=== PATIENT | female | born 1960 | race Caucasian/White ===

== ENCOUNTER → 2016-07-01 | Outpatient (CLI) | payer BC ==
[~2016-07-01] MED LIST: ADVIN25/60 INH; ALBU0.5N2 NEB; ALBU1AER9 INH; ASPI81TA28 PO; FLUT0.15 NAE; HYDR5SYP PO; LISI-461 PO; LSN5 PO; NYSS/ PO; PRED10TA PO; PRLSR20 PO; RANI300C PO
--- NOTE | 2016-07-02 13:15 | MAMMOGRAPHY REPORT ---
BILATERAL DIGITAL SCREENING MAMMOGRAM TOMOSYNTHESIS WITH CAD: 07/01/2016 CLINICAL HISTORY: Routine screening examination. TECHNIQUE: Breast tomosynthesis in addition to standard 2D mammography was performed. Current study was also evaluated with a Computer Aided Detection (CAD) system. COMPARISON: Comparison is made to exams dated: 06/28/2015 mammogram, 05/17/2014 mammogram, 05/11/2013 m ammogram, and 03/05/2011 mammogram - [facility]. BREAST COMPOSITION: There are scattered areas of fibroglandular density in both breasts. FINDINGS: The parenchymal pattern is unchanged. No developing mass, architectural distortion or clu ster of suspicious microcalcifications is seen in either breast. IMPRESSION: ACR BI-RADS CATEGORY 2: BENIGN There is no mammographic evidence of malignancy. A 1 year screening mammogram is recommended. The p atient will receive written notification of the results. Approximately 10% of breast cancers are not detected with mammography. A negative mammographic repor t should not delay biopsy if a clinically suggestive mass is present. Loli Vera M.D. ay/:07/01/2016 17:03:48 Card Puncher: Rosy PAN(R)(M), [facility] letter sent: Normal 1/2 BI-RADS Code: ACR BI-RADS Category 2: Benign
== END | disposition home or self-care (01) ==
LOC: C.MAMM 16:09
PROVIDERS: ATTEND Family Medicine
DX: Z12.31 Encounter for screening mammogram for malignant neoplasm of breast (principal)

== ENCOUNTER 2018-12-04 17:45 | Inpatient (IN) ==
[2018-12-04] MEDS ORDERED: ACETAMINOPHEN 325 MG TAB PO STA (18:01)
[2018-12-04] MEDS ORDERED: SODIUM CHLORIDE 0.9% 1000ML 2,000 ML IV ONE (18:01)
[2018-12-04] MEDS ORDERED: CEFEPIME 2,000 MG in SYRINGE 7.5 ML IV STA (18:08)
[2018-12-04] MEDS ORDERED: NYSTATIN SUSP 500,000 U/5 ML UDC PO STA (18:15)
--- NOTE | 2018-12-04 18:34 | XRay Report ---
XR chest 1V portable CLINICAL HISTORY: 58 years-old Female presenting with Sepsis. TECHNIQUE: Portable upright AP view of the chest was obtained. COMPARISON: 06/13/2015. FINDINGS: Cardiomediastinal silhouette normal. No focal opacity. No large effusion or pneumothorax. Degenerativ e changes of the thoracic spine. Upper abdomen normal. IMPRESSION: 1. No acute cardiopulmonary disease. Electronically signed by: Bart Ritchie M.D. 12/04/2018 6:32 PM
[2018-12-04 18:37] LABS: Partial Thromboplastin Ratio 1.1; Partial Thromboplastin Time 29.7 Seconds (21.0-31.0); Prothrombin Time 10.5 Seconds (9.0-12.0)
[2018-12-04 18:41] LABS: Albumin Level 3.9 gm/dl (3.4-5.0); BUN Creatinine Ratio 8.6 (10-20); Calcium 9.4 mg/dl (8.5-10.1); Creatinine Clr Calc Pharmacy 51.1 ml/min; Est GFR (African American) 51.5; Est GFR (Non-African American) 44.5; Potassium 4.4 mmol/L (3.5-5.1)
[2018-12-04 18:43] LABS: Albumin Globulin Ratio 1.1 (0.9-2); Bilirubin,Total 1.4 mg/dl (0.2-1); Globulin 3.7 gm/dl (2.5-4.0); Total Protein 7.6 gm/dl (6.4-8.2)
[2018-12-04 19:18] LABS: Appearance Urine Clear (Clear); Bilirubin Urine Negative (Negative); Blood Urine Negative (Negative); Color Urine Yellow; Glucose Urine UA Negative (Negative); Ketones Urine 1+ (Negative); Leukocyte Esterase Urine Negative (Negative); Nitrite Urine Negative (Negative); Protein Urine Negative (Negative); Specific Gravity Urine 1.015 (1.000-1.030); Urobilinogen Urine Negative (Negative)
[2018-12-04 19:29] LABS: Hematocrit (blood only) 46.4 % (37-47); Hemoglobin 16.6 g/dL (12.0-16.0); Mean Corpuscular Hgb Conc 35.8 g/dL (32-36); Mean Corpuscular Volume 92.6 fL (80-100); Mean Platelet Volume 11.1 fL (7.4-10.4); Platelet Count 164 K/uL (130-400); RDW Coefficient of Variation 12.3 % (11.5-14.5); RDW Standard Deviation 41.3 fL (36.4-46.3); Red Blood Count 5.01 M/uL (4.2-5.4); White Blood Count 2.79 K/uL (4.8-10.8)
[2018-12-04 19:32] LABS: Dohle Bodies 1+
[2018-12-04 19:36] LABS: ALC (manual) 1.69 K/uL (1.2-3.4); Blast # (manual) 0.05 K/uL (0-0); Blast Cells % (manual) 1.8 %; Eosinophils % (manual) 3.6 %; Lymphocytes # (manual) 1.69 K/uL (1.2-3.4); Lymphocytes % (manual) 60.4 %; Metamyelocytes # (manual) 0.03 K/uL (0-0); Metamyelocytes % (manual) 0.9 %; Monocytes # (manual) 0.65 K/uL (0.11-0.59); Monocytes % (manual) 23.4 %; Myelocytes # (manual) 0.05 K/uL (0-0); Myelocytes % (manual) 1.8 %; Neutrophils % (manual) 6.3 %; Promyelocytes # (manual) 0.05 K/uL (0-0); Promyelocytes % (manual) 1.8 %
--- NOTE | 2018-12-04 22:57 | History and Physical Report ---
DATE OF ADMISSION: 12/04/2018 CHIEF COMPLAINT: Fever. HISTORY OF PRESENT ILLNESS: This is a 58-year-old female with past medical history significant for asthma, hypertension, obesity, chronic kidney disease stage III, recent diagnosis of triple negative breast cancer status post surgery in October and status post first chemo last Wednesday and Neulasta on Wednesday.Presents with fever. The patient says since yesterday she was not feeling well, feeling generalized weak, poor appetite, and also she developed thrush in the tongue, which is not helping with her appetite and today she started feeling hot and thought she has a fever and came to the hospital and she was found to be slightly tachycardic and temperature spike and also having neutropenia, so we were called for febrile neutropenia. The patient received a dose of cefepime in the ER. Currently resting comfortably and hemodynamically stable. Denies any headache. No blurred visions, no earache, no runny nose, no sore throat. Has thrush in the mouth. No difficulty swallowing. Appetite is poor. No chest pain, no shortness of breath, no cough. No nausea, no vomiting. Some abdominal discomfort after eating. She has some on and off diarrhea since her gallbladder was taken out. No blood in the stools, no black stools. Normal bladder movements. No hematuria, no rash, no edema in the legs. Otherwise she is doing okay. She lives with her . ALLERGIES: POLLEN. PAST MEDICAL HISTORY: As mentioned above. PAST SURGICAL HISTORY:Excision of breast lesion bilaterally, EGD, right fibroadenoma, ligation of the oviducts, partial mastectomy on the left, cholecystectomy, vaginal hysterectomy. MEDICATIONS: The patient is on tramadol 50 mg p.o. q. 6 hours p.r.n., Protonix 40 mg p.o. daily, lisinopril 20 mg p.o. daily, albuterol 2 puffs 4 times a day, multivitamins daily. FAMILY HISTORY: Significant for mother has hypertension, father of [place] at age of 39, uncle had heart disorder, of [place]. SOCIAL HISTORY: , lives with her . No smoking history. Alcohol, social drinking. No drug use. REVIEW OF SYMPTOMS: As per HPI. Rest of the review of systems negative. PHYSICAL EXAMINATION: GENERAL: The patient is obese, not in acute distress. VITAL SIGNS: Temperature T-max 38.1, pulse 105, respiratory rate 23, blood pressure 137/84, oxygen 95% on room air. HEENT: No pallor, no icterus. Pupils equal, round, reactive to light. Oral mucosa, thrush in her tongue. NECK: No JVD, no neck masses, no carotid bruits. CARDIOVASCULAR: S1, S2 heard, regular rate and rhythm, no murmur, no gallop. RESPIRATORY SYSTEM: Normal AP diameter. No accessory muscle use. No wheezing, no crackles. ABDOMEN: Soft, bowel sounds present. Mild diffuse discomfort. No guarding, no rigidity. No distention. CENTRAL NERVOUS SYSTEM: Cranial nerves II-XII grossly intact, nonfocal. EXTREMITIES: No edema, no erythema. LABORATORY DATA: WBC 2.7, hemoglobin 16.6, hematocrit 46.4, platelets 164, total absolute neutrophils 0.18. PT 12.5, INR 1, APTT 29.7. Sodium 134, potassium 4.4, chloride 98, bicarbonate 27, BUN 11, creatinine 1.31, glucose 110. Lactate 1.7, calcium 9.4, total bilirubin 1.4, AST 21, ALT 44, alkaline phosphatase 133. Urinalysis negative. IMAGING DATA: Chest x-ray, no acute cardiopulmonary disease. EKG: Sinus tachycardia at a rate of 104. No significant change from previous EKG. ASSESSMENT AND PLAN: This is a 58-year-old female who presents with febrile neutropenia. 1. Febrile neutropenia. Has triple negative breast cancer status post surgery and first chemo last Wednesday and the patient received Neulasta on Wednesday. Comes with fever and found to have febrile neutropenia. Chest x-ray, no acute abnormalities seen. UA is negative. Empirically starting on cefepime and vancomycin. Follow the cultures. IV fluids. Neutropenic precautions. Monitor in the med/surg tele. If no improvement, will consider consulting ID and hematology/oncology. 2. Breast cancer, triple negative, status post left lumpectomy and first cycle of chemo last Wednesday. Follow up with hematology/oncology. 3. Hypertension. Continue lisinopril withholding parameters. 4. Gastroesophageal reflux disease, continue Protonix. 5. Asthma, currently stable, albuterol p.r.n. 6. Deep venous thrombosis prophylaxis, sequential compression devices for now. 7. Disposition: Admit to med/surg tele. Level 1 full code. Expect to discharge home and follow with her family doctor and hem/onc. RK
--- NOTE | 2018-12-04 23:34 | Emergency Department Note ---
Entered by Lorrie Emerson acting as a scribe for History of Present Illness General Chief complaint: Fever Stated complaint: FEVER Source: patient Limitations: no limitations History of Present Illness Onset (ago): hour(s) (this afternoon) Location: head Pain Consistency: + other (persistent) Maximum Pain Intensity: 3 Quality: + other (fever) Associated symptoms: + denies other symptoms (cough, rhinorrhea, sore throat, abdominal pain, nausea/vomiting, and urinary symptoms) and + other (feeling tired and achy) The patient is a 58 year old female with a PMHx of GERD, cancer, HTN, and cholecystectomy who presents to the Emergency Room with complaints of a persistent fever that began this afternoon. She reports that her fever was 101.3. The patient notes that she got her first chemotherapy treatment 6 days ago, noting that this was her first dose. The patient complains of feeling tired and achy. She denies any cough, rhinorrhea, sore throat, abdominal pain, nausea/vomiting, and urinary symptoms. The patient notes that her last BM was a few hours ago, and it was looser than normal. She notes that she has thrush in her mouth, but she is not on antibiotics. The patient denies any sick exposure. Home Medications Home Medications Medication Instructions Recorded Confirmed Type lisinopril 20 mg PO DAILY 12/04/18 12/04/18 History pantoprazole 40 mg PO DAILY 12/04/18 12/04/18 History tramadol 50 mg PO Q6H PRN 12/04/18 12/04/18 History Allergies Allergy/AdvReac Type Severity Reaction Status Date / Time No Known Allergies Allergy Unverified 12/04/18 18:34 Past Med/Surg History Medical History Asthma (Chronic) GERD (gastroesophageal reflux disease) (Chronic) Hypertension (Chronic) Allergic rhinitis (Chronic) Surgical History Status post cholecystectomy (Chronic) Status post hysterectomy (Chronic) Status post tubal ligation (Chronic) Status post excision of fibroadenoma of breast (Chronic) Social History Feels Safe at Home: Yes Smoking Status: Never smoker Review of Systems See HPI for pertinent positives & negatives. and A total of 10 systems reviewed and were otherwise negative Physical Exam Vital Signs Vital Signs - 24 hr 12/04/18 17:49 12/04/18 18:37 12/04/18 18:40 Temperature 38.1 C H Temperature Source Oral Sepsis Recent Fever Within 48 Hours No Sepsis Action Taken by Nursing No Action Required Pulse Rate 119 H 106 H 107 H Pulse Rate from SpO2 Sensor 105 H Pulse Rhythm Regular Regular Pulse Strength Normal Respiratory Rate 20 22 20 Respiratory Effort / Characteristics Non-Labored Spontaneous Respiratory Depth Normal Respiratory Pattern Regular Blood Pressure 122/83 134/72 Blood Pressure Mean 96 92 Blood Pressure Position Sitting Pulse Oximetry 97 92 97 Oxygen Delivery Method Room Air Room Air Room Air 12/04/18 18:45 12/04/18 19:15 12/04/18 19:30 Temperature Temperature Source Sepsis Recent Fever Within 48 Hours Sepsis Action Taken by Nursing Pulse Rate 109 H 104 H 106 H Pulse Rate from SpO2 Sensor 109 H 104 H 107 H Pulse Rhythm Pulse Strength Respiratory Rate 19 34 H 34 H Respiratory Effort / Characteristics Respiratory Depth Respiratory Pattern Blood Pressure 135/94 129/76 132/78 Blood Pressure Mean 107 93 96 Blood Pressure Position Pulse Oximetry 94 91 95 Oxygen Delivery Method Room Air Room Air Room Air 12/04/18 20:25 12/04/18 20:30 12/04/18 20:46 Temperature 38.1 C H Temperature Source Oral Sepsis Recent Fever Within 48 Hours Sepsis Action Taken by Nursing Pulse Rate 110 H 105 H Pulse Rate from SpO2 Sensor 111 H 106 H Pulse Rhythm Pulse Strength Respiratory Rate 30 H 23 Respiratory Effort / Characteristics Respiratory Depth Respiratory Pattern Blood Pressure 101/70 137/84 Blood Pressure Mean 80 101 Blood Pressure Position Pulse Oximetry 96 95 Oxygen Delivery Method Room Air Room Air 12/04/18 22:00 12/04/18 22:05 12/04/18 22:06 Temperature 37.9 C H Temperature Source Oral Sepsis Recent Fever Within 48 Hours Sepsis Action Taken by Nursing Pulse Rate 104 H 104 H Pulse Rate from SpO2 Sensor 106 H 104 H Pulse Rhythm Pulse Strength Respiratory Rate 25 H 25 H Respiratory Effort / Characteristics Respiratory Depth Respiratory Pattern Blood Pressure 120/84 Blood Pressure Mean 96 Blood Pressure Position Pulse Oximetry 97 97 Oxygen Delivery Method Room Air 12/04/18 22:15 12/04/18 22:30 Temperature Temperature Source Sepsis Recent Fever Within 48 Hours Sepsis Action Taken by Nursing Pulse Rate 107 H 95 H Pulse Rate from SpO2 Sensor 107 H 95 H Pulse Rhythm Pulse Strength Respiratory Rate 25 H 30 H Respiratory Effort / Characteristics Respiratory Depth Respiratory Pattern Blood Pressure 109/72 111/71 Blood Pressure Mean 84 84 Blood Pressure Position Pulse Oximetry 95 94 Oxygen Delivery Method Room Air Room Air GENERAL: sitting up in bed, alert, well appearing, well nourished, no distress, non-toxic EYE EXAM: normal conjunctiva, PERRL and EOM's grossly intact OROPHARYNX: no exudate, no erythema, lips, buccal mucosa, mucous membranes are moist. White plaques on the tongue. NECK: supple, no nuchal rigidity, no adenopathy, non-tender LUNGS: Clear to auscultation. Normal chest wall mechanics HEART: no murmurs, S1 normal and S2 normal. Tachycardic. ABDOMEN: abdomen soft, non-tender, normo-active bowel sounds, no masses, no rebound or guarding. BACK: Back is symmetrical on inspection and there is no deformity, no midline tenderness, no CVA tenderness. SKIN: no rashes and no bruising UPPER EXTREMITIES: upper extremities are grossly normal. LOWER EXTREMITIES: No pitting edema. NEURO EXAM: Normal sensorium, cranial nerves II-XII grossly intact, normal speech, no gross weakness of arms, no gross weakness of legs. Course ED COURSE: Vital signs were reviewed and showed the patient was febrile and tachycardic. The patients medical record was reviewed The above diagnostic studies were performed and reviewed. ED treatments and interventions as stated above. 5: The patient was evaluated in room A02. A complete history and physical examination was performed. 1858: I reevaluated the patient. 1954: I spoke with Dr. Wen, [facility] hospitalist, about the patients case. 2009: Upon reevaluation, the patient is stable. I discussed my findings with the patient and she understands and agrees with the treatment plan. Based on the patients age, coexisting illnesses, exam and lab findings the decision to treat as an inpatient was made. The patient remained stable while under my care. The patient will be evaluated for further management. Consultations Consultation #1: I spoke with Dr. Wen, [facility] hospitalist, about the patients case. Time: 19:55 Administered Medications Discontinued Medications Acetaminophen (Tylenol) 650 mg PO NOW STA Stop: 12/04/18 18:02 Last Admin: 12/04/18 18:30 Dose: 650 mg Documented by: [id number] Sodium Chloride (Nss 1000ml) 2,000 mls @ 999 mls/hr IV .Q2H1M ONE Stop: 12/04/18 20:01 Last Infusion: 12/04/18 20:32 Dose: 0 mls/hr Documented by: [id number] Admin: 12/04/18 18:30 Dose: 999 mls/hr Documented by: [id number] Cefepime HCl 2,000 mg/ Syringe 20 mls @ 5.5 mls/min IV NOW STA; Protocol Stop: 12/04/18 18:11 Last Admin: 12/04/18 18:30 Dose: 5.5 mls/min Documented by: [id number] Nystatin (Mycostatin) 5 ml PO NOW STA Stop: 12/04/18 18:16 Last Admin: 12/04/18 18:57 Dose: 5 ml Documented by: [id number] Medical Decision Making Differential Diagnosis Etiologies such as sepsis, UTI, pneumonia, bacteremia, metabolic process, electrolyte abnormalities, cardiac sources, intracerebral event, intra-abdominal process, toxicological process, neurologic process, as well as others were entertained. Medical Records Attestation: I reviewed the patient's medical records. Home Medications Current Medication List: was personally reviewed by me Laboratory Data Attestation: I reviewed the patient's lab results. Result diagrams: 12/04/18 18:13 12/04/18 18:13 Lab Results 12/04/18 12/04/18 12/04/18 Range/Units 18:13 18:13 18:13 WBC 2.79 L (4.8-10.8) K/uL RBC 5.01 (4.2-5.4) M/uL Hgb 16.6 H (12.0-16.0) g/dL Hct 46.4 (37-47) % MCV 92.6 (80-100) fL MCH 33.1 (25-34) pg MCHC 35.8 (32-36) g/dL RDW Std Deviation 41.3 (36.4-46.3) fL RDW Coeff of Odilon 12.3 (11.5-14.5) % Plt Count 164 (130-400) K/uL MPV 11.1 H (7.4-10.4) fL Neutrophils % (Manual) 6.3 % Lymphocytes % (Manual) 60.4 % Monocytes % (Manual) 23.4 % Eosinophils % (Manual) 3.6 % Metamyelocytes % (Man) 0.9 % Myelocytes % (Man) 1.8 % Promyelocytes % (Man) 1.8 % Blast Cells % (Manual) 1.8 % Neutrophils # (Manual) 0.18 L (1.4-6.5) K/uL Total Absolute Neuts 0.18 L* (1.4-6.5) K/uL Lymphocytes # (Manual) 1.69 (1.2-3.4) K/uL Total Abs Lymphocytes 1.69 (1.2-3.4) K/uL Monocytes # (Manual) 0.65 H (0.11-0.59) K/uL Eosinophils # (Manual) 0.10 (0-0.5) K/uL Metamyelocytes # (Man) 0.03 H (0-0) K/uL Myelocytes # (Manual) 0.05 H (0-0) K/uL Promyelocytes # (Man) 0.05 H (0-0) K/uL Blast Cells # (Man) 0.05 H (0-0) K/uL Dohle Bodies 1+ PT 10.5 (9.0-12.0) Seconds INR 1.0 (0.9-1.1) APTT 29.7 (21.0-31.0) Seconds PTT Ratio 1.1 Sodium 134 L (136-145) mmol/L Potassium 4.4 (3.5-5.1) mmol/L Chloride 98 (98-107) mmol/L Carbon Dioxide 27 (21-32) mmol/L Anion Gap 9.0 (3-11) BUN 11 (7-18) mg/dl Creatinine 1.31 H (0.6-1.2) mg/dl Est Cr Clr Drug Dosing 51.1 ml/min Est GFR ( Amer) 51.5 Est GFR (Non-Af Amer) 44.5 BUN/Creatinine Ratio 8.6 L (10-20) Glucose 110 H (70-99) mg/dl Lactate (0.4-2.0) mmol/L Calcium 9.4 (8.5-10.1) mg/dl Total Bilirubin 1.4 H (0.2-1) mg/dl AST 21 (15-37) U/L ALT 44 (12-78) U/L Alkaline Phosphatase 133 H (45-117) U/L Total Protein 7.6 (6.4-8.2) gm/dl Albumin 3.9 (3.4-5.0) gm/dl Globulin 3.7 (2.5-4.0) gm/dl Albumin/Globulin Ratio 1.1 (0.9-2) Urine Color Urine Appearance (Clear) Urine pH (4.5-7.5) Ur Specific Saxe (1.000-1.030) Urine Protein (Negative) Urine Glucose (UA) (Negative) Urine Ketones (Negative) Urine Blood (Negative) Urine Nitrite (Negative) Urine Bilirubin (Negative) Urine Urobilinogen (Negative) Ur Leukocyte Esterase (Negative) 12/04/18 12/04/18 Range/Units 18:13 18:54 WBC (4.8-10.8) K/uL RBC (4.2-5.4) M/uL Hgb (12.0-16.0) g/dL Hct (37-47) % MCV (80-100) fL MCH (25-34) pg MCHC (32-36) g/dL RDW Std Deviation (36.4-46.3) fL RDW Coeff of Odilon (11.5-14.5) % Plt Count (130-400) K/uL MPV (7.4-10.4) fL Neutrophils % (Manual) % Lymphocytes % (Manual) % Monocytes % (Manual) % Eosinophils % (Manual) % Metamyelocytes % (Man) % Myelocytes % (Man) % Promyelocytes % (Man) % Blast Cells % (Manual) % Neutrophils # (Manual) (1.4-6.5) K/uL Total Absolute Neuts (1.4-6.5) K/uL Lymphocytes # (Manual) (1.2-3.4) K/uL Total Abs Lymphocytes (1.2-3.4) K/uL Monocytes # (Manual) (0.11-0.59) K/uL Eosinophils # (Manual) (0-0.5) K/uL Metamyelocytes # (Man) (0-0) K/uL Myelocytes # (Manual) (0-0) K/uL Promyelocytes # (Man) (0-0) K/uL Blast Cells # (Man) (0-0) K/uL Dohle Bodies PT (9.0-12.0) Seconds INR (0.9-1.1) APTT (21.0-31.0) Seconds PTT Ratio Sodium (136-145) mmol/L Potassium (3.5-5.1) mmol/L Chloride (98-107) mmol/L Carbon Dioxide (21-32) mmol/L Anion Gap (3-11) BUN (7-18) mg/dl Creatinine (0.6-1.2) mg/dl Est Cr Clr Drug Dosing ml/min Est GFR ( Amer) Est GFR (Non-Af Amer) BUN/Creatinine Ratio (10-20) Glucose (70-99) mg/dl Lactate 1.7 (0.4-2.0) mmol/L Calcium (8.5-10.1) mg/dl Total Bilirubin (0.2-1) mg/dl AST (15-37) U/L ALT (12-78) U/L Alkaline Phosphatase (45-117) U/L Total Protein (6.4-8.2) gm/dl Albumin (3.4-5.0) gm/dl Globulin (2.5-4.0) gm/dl Albumin/Globulin Ratio (0.9-2) Urine Color Yellow Urine Appearance Clear (Clear) Urine pH 8.0 H (4.5-7.5) Ur Specific Saxe 1.015 (1.000-1.030) Urine Protein Negative (Negative) Urine Glucose (UA) Negative (Negative) Urine Ketones 1+ H (Negative) Urine Blood Negative (Negative) Urine Nitrite Negative (Negative) Urine Bilirubin Negative (Negative) Urine Urobilinogen Negative (Negative) Ur Leukocyte Esterase Negative (Negative) Imaging Data Radiologist's Impression: Radiology results as stated below per my review and the radiologist's interpretation: XR chest 1V portable CLINICAL HISTORY: 58 years-old Female presenting with Sepsis. TECHNIQUE: Portable upright AP view of the chest was obtained. COMPARISON: 06/13/2015. FINDINGS: Cardiomediastinal silhouette normal. No focal opacity. No large effusion or pneumothorax. Degenerative changes of the thoracic spine. Upper abdomen normal. IMPRESSION: 1. No acute cardiopulmonary disease. Electronically signed by: Bart Ritchie M.D. 12/04/2018 6:32 PM ECG Data Attestation: I personally reviewed and interpreted this ECG as follows: Indication: other (fever) Rate (beats per minute): 103 Rhythm: sinus tachycardia Findings: + other (normal axis); no PVC Blood Pressure Blood Pressure Findings: Normal blood pressure Blood Pressure Disposition: did not require urgent referral MDM Narrative Patient is a 58-year-old female with breast cancer who recently was given the first dose of chemotherapy on Wednesday for breast cancer. She was given Neupogen on Wednesday. Started to have a fever today of 101. Upon presentation she was febrile at 38.1 and tachycardic to low 100s. IVs were established and blood cultures were obtained. Sepsis alert was called. Labs show severe neutropenia with absolute neutrophils of 180. Leukopenia 2. BMP with mild hyponatremia and creatinine 1.3. LFTs and bilirubin was unremarkable. UA without any signs of infection. Chest x-ray was unremarkable. Patient was given 2 g of cefepime along with 2 L of normal saline. Patient was updated bedside. Discussed with the hospitalist and patient was admitted due to neutropenic fever was monitored closely while in the ER. Impression & Plan Neutropenic fever, Thrush Critical Care Time Critical Care Time: Yes Total Critical Care Time: 30 I have personally spent approximately 30 minutes of critical care time in the direct management of this patient. This includes bedside care, interpretation of diagnostic studies, and testing, discussion with consultants, patient, and family members, and other required patient management activities. This 30 minutes is in excess of all separately billable procedures. Discharge Plan Visit Data Chief Complaint: Fever Stated Complaint: FEVER ED Provider: Toño Grossman Discharge Problem: Neutropenic fever, Thrush Patient Disposition: Being Evaluated by Hospitalist Forms Stand Alone Forms: My [facility] Prescriptions Prescriptions: No Action lisinopril 20 mg tablet 20 mg PO DAILY RF: 0 tramadol 50 mg tablet 50 mg PO Q6H PRN (Reason: Pain) RF: 0 pantoprazole 40 mg tablet,delayed release (DR/EC) 40 mg PO DAILY RF: 0 Referrals Referrals: Junito Mercado MD [Primary Care Provider] - The scribe's documentation has been prepared under my direction and personally reviewed by me in its entirety. I confirm that the note above accurately reflects all work, treatment, procedures, and medical decision making performed by me.
[2018-12-05] MEDS ORDERED: TRAMADOL HCL 50 MG TABLET PO PRN (00:35)
[2018-12-05] MEDS ORDERED: NITROGLYCERIN SL 0.4 MG/TAB TAB SL PRN (00:35)
[2018-12-05] MEDS ORDERED: ACETAMINOPHEN 65 ML IV PRN (00:35)
[2018-12-05] MEDS ORDERED: ONDANSETRON INJ 2 MG/ML 2 ML VIAL IV PRN (00:35)
[2018-12-05] MEDS ORDERED: ALBUTEROL HFA 8 GM INHALER INH PRN (00:35)
[2018-12-05] MEDS ORDERED: VANCOMYCIN CONSULT ACTIVE PRN (00:35)
[2018-12-05] MEDS ORDERED: ACETAMINOPHEN 325 MG TAB PO PRN (00:35)
[2018-12-05] MEDS ORDERED: CEFEPIME CONSULT ACTIVE PRN (00:46)
[2018-12-05] MEDS ORDERED: VANCOMYCIN HCL 2,000 MG in SODIUM CHLORIDE 0.9% 500 ML IV ONE (01:00)
[2018-12-05] MEDS: SODIUM CHLORIDE 0.9% 1000ML 1,000 ML IV SCH ×3 (01:11→20:17)
[2018-12-05 02:58] LABS: Appearance Urine Clear (Clear); Bilirubin Urine Negative (Negative); Blood Urine Negative (Negative); Color Urine Yellow; Glucose Urine UA Negative (Negative); Ketones Urine Trace (Negative); Leukocyte Esterase Urine Negative (Negative); Nitrite Urine Negative (Negative); Protein Urine Negative (Negative); Specific Gravity Urine 1.009 (1.000-1.030); Urobilinogen Urine Negative (Negative)
--- NOTE | 2018-12-05 04:09 | Pharmacy Report ---
Pharmacy Abx Dose Short Note - Date of Service December 05, 2018 - Assessment & Plan Selected Entries 12/05/18 03:34 Temperature 38.3 C H Laboratory Tests 12/04/18 12/04/18 18:13 18:13 WBC 2.79 L Creatinine 1.31 H Est Cr Clr Drug Dosing 51.1 Assessment: 58 yo Female receiving VANC-IV/CEFEPIME FOR febrile neutropenia * Day # 1 of antimicrobial therapy. Pertinent PMH: CKD3, breast CA with recent 1st chemo. Plan: Vanc-IV: * Estimated pharmacokinetics: Vd~0.7 L/kg, Ke~0.0467 hr-1, T 1/2~15 hrs * LOADING DOSE: VANC 2000mg (~20mg/kg) IV x 1, then further follow up by floor based pharmacist later this morning Cefepime: Target dose 2 g IV q 8 hours, Ordered 2 grams IV q 12 hours for est GFR 30-60mL/min. Pharmacy will continue to follow and will adjust dose/frequency as necessary. Thank you.
[2018-12-05 05:58] LABS: Hemoglobin 15.1 g/dL (12.0-16.0); Mean Corpuscular Volume 92.5 fL (80-100); Mean Platelet Volume 10.8 fL (7.4-10.4); Nucleated RBC # (auto) 0.03 K/uL (0-0); Nucleated RBC % (auto) 0.4 %; Platelet Count 152 K/uL (130-400); RDW Coefficient of Variation 12.2 % (11.5-14.5); RDW Standard Deviation 41.6 fL (36.4-46.3); Red Blood Count 4.54 M/uL (4.2-5.4)
[2018-12-05] MEDS ORDERED: CEFEPIME 2,000 MG in SYRINGE 7.5 ML IV SCH (06:00)
[2018-12-05 06:35] LABS: BUN Creatinine Ratio 8.8 (10-20); Calcium 8.5 mg/dl (8.5-10.1); Creatinine Clr Calc Pharmacy 69.9 ml/min; Est GFR (Non-African American) 64.7; Magnesium 2.1 mg/dl (1.8-2.4); Potassium 4.2 mmol/L (3.5-5.1)
[2018-12-05 06:39] LABS: ALC (manual) 2.17 K/uL (1.2-3.4); Basophils # (manual) 0.06 K/uL (0-0.2); Basophils % (manual) 0.9 %; Blast # (manual) 0.06 K/uL (0-0); Blast Cells % (manual) 0.9 %; Eosinophils # (manual) 0.13 K/uL (0-0.5); Eosinophils % (manual) 1.8 %; Lymphocytes # (manual) 2.17 K/uL (1.2-3.4); Metamyelocytes # (manual) 0.19 K/uL (0-0); Metamyelocytes % (manual) 2.7 %; Monocytes % (manual) 25.7 %; Myelocytes # (manual) 0.19 K/uL (0-0); Myelocytes % (manual) 2.7 %; Neutrophils % (manual) 31.6 %; Promyelocytes # (manual) 0.19 K/uL (0-0); Promyelocytes % (manual) 2.7 %
[2018-12-05] MEDS: PANTOprazole 40 MG TAB PO SCH (07:50)
[2018-12-05] MEDS: LISINOPRIL 20 MG TAB PO SCH (07:52)
[2018-12-05] MEDS: NYSTATIN SUSP 500,000 U/5 ML UDC PO SCH ×4 (07:52→20:19)
[2018-12-05] MEDS: VANCOMYCIN HCL 1,000 MG in SODIUM CHLORIDE 0.9% 250 ML IV SCH (13:41)
[2018-12-05] MEDS: CEFEPIME 2,000 MG in SYRINGE 7.5 ML IV SCH ×2 (13:41→21:18)
--- NOTE | 2018-12-05 18:48 | Hospitalist Progress Note ---
Date of Service December 05, 2018 Assessment & Plan (1) Neutropenic fever: Patient is a 58 yr female who presents with febrile Neutropenia Febrile neutropenia Oral Thrush H/O Triple negative breast cancer S/P first cycle of chemotherapy on 11/28/18 Received Neulasta on 11/29/18 Blood/Urine Cx:pending CXR: no acute abnormalities Continue IV cefepime and vancomycin for now Also on Nystatin WBC count improving Monitor CBC Continue IV fluids Breast cancer-- triple negative S/P left lumpectomy and first cycle of chemotherapy Follows with Oncology as outpatient HTN: Continue lisinopril GERD: continue Protonix Asthma No signs of exacerbation Albuterol as needed DVT Px: SCDs for now Code Status Full Code Disposition: Expect to discharge home when stable Subjective Patient is seen and examined at bedside Doing much better this morning Appetite slowly improving Generalized weakness improving Denies any chest pain, shortness of breath, dizziness, nausea, abdominal pain Offers no other complaints Review of Systems Review of Systems: All systems reviewed & are unremarkable except as noted in HPI & below Physical Exam Physical Exam: Physical Exam: Vitals signs as noted above General Appearance:Obese, no apparent distress Head: normocephalic, Atraumatic Eyes: normal inspection, EOMI Neck: supple, Trachea midline Respiratory/Chest: Normal breath sounds, CTA Cardiovascular: S1, S2, No murmur Abdomen/GI:Soft, Non tender, Bowel sounds present Extremities/Musculoskelatal:normal inspection, no edema Neurologic/Psych:AAOX3, grossly no focal neurological deficits Skin: normal color, warm Results & Data Vital Signs (Past 12 Hours) Vital Signs Temp Pulse Resp BP Pulse Ox 12/05/18 15:11 37 C 109 H 18 132/75 96 12/05/18 11:29 37.1 C 88 18 116/75 96 12/05/18 07:09 37.4 C 86 18 94/61 L 96 Laboratory Results Short CBC 12/04/18 12/05/18 Range/Units 18:13 05:45 WBC 2.79 L 7.00 (4.8-10.8) K/uL Hgb 16.6 H 15.1 (12.0-16.0) g/dL Hct 46.4 42.0 (37-47) % Plt Count 164 152 (130-400) K/uL BMP 12/04/18 12/05/18 18:13 05:45 Sodium 134 L 139 Potassium 4.4 4.2 Chloride 98 107 Carbon Dioxide 27 23 BUN 11 9 Creatinine 1.31 H 0.96 D Glucose 110 H 105 H Calcium 9.4 8.5 Liver Function 12/04/18 Range/Units 18:13 Total Bilirubin 1.4 H (0.2-1) mg/dl AST 21 (15-37) U/L ALT 44 (12-78) U/L Alkaline Phosphatase 133 H (45-117) U/L Albumin 3.9 (3.4-5.0) gm/dl Urine 12/04/18 12/05/18 Range/Units 18:54 Unknown Urine Color Yellow Yellow Urine Appearance Clear Clear (Clear) Urine pH 8.0 H 7.0 (4.5-7.5) Ur Specific [place] 1.015 1.009 (1.000-1.030) Urine Protein Negative Negative (Negative) Urine Glucose (UA) Negative Negative (Negative) Diagnostic Findings CXR: No acute cardiopulmonary disease.
[2018-12-06] MEDS: VANCOMYCIN HCL 1,000 MG in SODIUM CHLORIDE 0.9% 250 ML IV SCH (04:13)
[2018-12-06] MEDS: SODIUM CHLORIDE 0.9% 1000ML 1,000 ML IV SCH (06:06)
[2018-12-06] MEDS: CEFEPIME 2,000 MG in SYRINGE 7.5 ML IV SCH (06:33)
[2018-12-06 07:17] LABS: Hematocrit (blood only) 41.7 % (37-47); Hemoglobin 14.5 g/dL (12.0-16.0); Mean Corpuscular Hgb Conc 34.8 g/dL (32-36); Mean Corpuscular Volume 93.3 fL (80-100); Mean Platelet Volume 10.9 fL (7.4-10.4); Nucleated RBC # (auto) 0.03 K/uL (0-0); Nucleated RBC % (auto) 0.1 %; Platelet Count 171 K/uL (130-400); RDW Coefficient of Variation 12.4 % (11.5-14.5); RDW Standard Deviation 42.8 fL (36.4-46.3); Red Blood Count 4.47 M/uL (4.2-5.4); White Blood Count 20.55 K/uL (4.8-10.8)
[2018-12-06 07:20] VITALS: BP 101/67; TEMP 98.4; O2SAT 97
[2018-12-06 07:32] LABS: ALC (manual) 2.14 K/uL (1.2-3.4); Blast # (manual) 0.18 K/uL (0-0); Blast Cells % (manual) 0.9 %; Lymphocytes # (manual) 2.14 K/uL (1.2-3.4); Lymphocytes % (manual) 10.4 %; Metamyelocytes # (manual) 0.53 K/uL (0-0); Metamyelocytes % (manual) 2.6 %; Monocytes # (manual) 2.32 K/uL (0.11-0.59); Monocytes % (manual) 11.3 %; Neutrophils % (manual) 71.3 %; Promyelocytes # (manual) 0.72 K/uL (0-0); Promyelocytes % (manual) 3.5 %; Toxic Granulation 3+
[2018-12-06 07:44] LABS: BUN Creatinine Ratio 6.9 (10-20); Calcium 8.7 mg/dl (8.5-10.1); Creatinine Clr Calc Pharmacy 71.6 ml/min; Est GFR (Non-African American) 66.4; Potassium 3.9 mmol/L (3.5-5.1)
[2018-12-06] MEDS: NYSTATIN SUSP 500,000 U/5 ML UDC PO SCH ×2 (07:59→11:29)
[2018-12-06] MEDS: PANTOprazole 40 MG TAB PO SCH (07:59)
[2018-12-06] MEDS: LISINOPRIL 20 MG TAB PO SCH (08:33)
--- NOTE | 2018-12-06 12:39 | Hospitalist Progress Note ---
Date of Service December 06, 2018 Assessment & Plan (1) Neutropenic fever: Patient is a 58 yr female who presents with febrile Neutropenia Febrile neutropenia Oral Thrush H/O Triple negative breast cancer S/P first cycle of chemotherapy on 11/28/18 Received Neulasta on 11/29/18 Blood/Urine Cx: No growth to date CXR: no acute abnormalities Continue IV cefepime and vancomycin for now Continue Nystatin WBC count--leukocytosis today, likely secondary to Neulasta Afebrile today Monitor CBC Received IV fluids Breast cancer-- triple negative S/P left lumpectomy and first cycle of chemotherapy Follows with Oncology as outpatient ISSA on CKD III: Creatinine levels back to baseline Received IV fluids Avoid nephrotoxic agents as able HTN: Continue lisinopril GERD: continue Protonix Asthma No signs of exacerbation Albuterol as needed DVT Px: SCDs for now Code Status Full Code Disposition: Plan to discharge home today Subjective Patient is seen and examined at bedside Eager to get discharged Appetite improvement No new complaints Denies any chest pain, shortness of breath, dizziness, nausea, abdominal pain Review of Systems Review of Systems: All systems reviewed & are unremarkable except as noted in HPI & below Physical Exam Physical Exam: Physical Exam: Vitals signs as noted above General Appearance:Obese, no apparent distress Head: normocephalic, Atraumatic Eyes: normal inspection, EOMI Neck: supple, Trachea midline Respiratory/Chest: Normal breath sounds, CTA Cardiovascular: S1, S2, No murmur Abdomen/GI:Soft, Non tender, Bowel sounds present Extremities/Musculoskelatal:normal inspection, no edema Neurologic/Psych:AAOX3, grossly no focal neurological deficits Skin: normal color, warm Results & Data Vital Signs (Past 12 Hours) Vital Signs Temp Pulse Resp BP Pulse Ox 12/06/18 07:19 36.9 C 85 16 101/67 97 12/06/18 04:00 36.4 C L 97 H 18 106/67 96 Laboratory Results Short CBC 12/06/18 Range/Units 06:25 WBC 20.55 H (4.8-10.8) K/uL Hgb 14.5 (12.0-16.0) g/dL Hct 41.7 (37-47) % Plt Count 171 (130-400) K/uL BMP 12/06/18 06:25 Sodium 139 Potassium 3.9 Chloride 107 Carbon Dioxide 23 BUN 7 Creatinine 0.94 Glucose 87 Calcium 8.7
--- NOTE | 2018-12-06 12:45 | Discharge Summary ---
Date of Service December 06, 2018 Admission HPI Per Admitting Provider CHIEF COMPLAINT: Fever. HISTORY OF PRESENT ILLNESS: This is a 58-year-old female with past medical history significant for asthma, hypertension, obesity, chronic kidney disease stage III, recent diagnosis of triple negative breast cancer status post surgery in October and status post first chemo last Wednesday and Neulasta on Wednesday.Presents with fever. The patient says since yesterday she was not feeling well, feeling generalized weak, poor appetite, and also she developed thrush in the tongue, which is not helping with her appetite and today she started feeling hot and thought she has a fever and came to the hospital and she was found to be slightly tachycardic and temperature spike and also having neutropenia, so we were called for febrile neutropenia. The patient received a dose of cefepime in the ER. Currently resting comfortably and hemodynamically stable. Denies any headache. No blurred visions, no earache, no runny nose, no sore throat. Has thrush in the mouth. No difficulty swallowing. Appetite is poor. No chest pain, no shortness of breath, no cough. No nausea, no vomiting. Some abdominal discomfort after eating. She has some on and off diarrhea since her gallbladder was taken out. No blood in the stools, no black stools. Normal bladder movements. No hematuria, no rash, no edema in the legs. Otherwise she is doing okay. She lives with her . Admission Exam Per Admitting Provider PHYSICAL EXAMINATION: GENERAL: The patient is obese, not in acute distress. VITAL SIGNS: Temperature T-max 38.1, pulse 105, respiratory rate 23, blood pressure 137/84, oxygen 95% on room air. HEENT: No pallor, no icterus. Pupils equal, round, reactive to light. Oral mucosa, thrush in her tongue. NECK: No JVD, no neck masses, no carotid bruits. CARDIOVASCULAR: S1, S2 heard, regular rate and rhythm, no murmur, no gallop. RESPIRATORY SYSTEM: Normal AP diameter. No accessory muscle use. No wheezing, no crackles. ABDOMEN: Soft, bowel sounds present. Mild diffuse discomfort. No guarding, no rigidity. No distention. CENTRAL NERVOUS SYSTEM: Cranial nerves II-XII grossly intact, nonfocal. EXTREMITIES: No edema, no erythema. Principal Diagnosis Discharge Information Discharge Diagnosis Neutropenic fever Oral thrush Acute Kidney Injury Discharge Goals Decrease discomfort,Improve disease control, Improve function Discharge Activity Limitations Resume your previous activity Discharge Data Allergies Allergy/AdvReac Type Severity Reaction Status Date / Time No Known Allergies Allergy Unverified 12/04/18 18:34 Consultations 12/04/18 20:01 ED Decision to Admit Stat Procedures Performed CXR: No acute cardiopulmonary disease. Hospital Course (1) Neutropenic fever: Patient is a 58 yr female who presents with febrile Neutropenia Febrile neutropenia Oral Thrush H/O Triple negative breast cancer S/P first cycle of chemotherapy on 11/28/18 Received Neulasta on 11/29/18 Blood/Urine Cx: No growth to date CXR: no acute abnormalities Continue IV cefepime and vancomycin for now Continue Nystatin WBC count--leukocytosis today, likely secondary to Neulasta Afebrile today Monitor CBC Received IV fluids Breast cancer-- triple negative S/P left lumpectomy and first cycle of chemotherapy Follows with Oncology as outpatient ISSA on CKD III: Creatinine levels back to baseline Received IV fluids Avoid nephrotoxic agents as able HTN: Continue lisinopril GERD: continue Protonix Asthma No signs of exacerbation Albuterol as needed DVT Px: SCDs for now Code Status Full Code Disposition: Plan to discharge home today Total Time Total Time Spent Total Time Spent (In Minutes): 38 minutes Total Time Includes: Examination of the Patient, Discharge Planning, Medication Reconciliation, Communication With Other Providers and Other Discharge Plan Discharge Items Patient Disposition: Home - Self-Care Reason For Visit: FEVER Discharge Diagnosis: Neutropenic fever Oral thrush Acute Kidney Injury Discharge Goals: Decrease discomfort, Improve disease control and Improve function Activity: Resume your previous activity Exercise/Sports: Gradually increase as tolerated Non-emergency contact: Primary Care Provider and Oncologist Call non-emergency contact if: you have any medication questions, your symptoms worsen, your pain is not controlled, your pain is worsening, your pain is unusual for you, your pain is concerning for you and you have a fever Follow-up/Referrals: Junito Mercado MD [Primary Care Provider] - Diet: Regular Other Ambulatory Orders: Complete Blood Count with Diff (Routine) Timeframe: 1 Week Location: Determined by Patient Ordered By: Aroldo Osborn Add Provider Instructions: Follow-up with your primary care physician Dr. Mercado on Dec 12, 2018 at 1:00pm Follow-up with your oncologist Dr. Fernandez on December 19, 2018 as scheduled Your final blood cultures are pending at the time of discharge. Follow-up with your primary care physician for results. Get blood test (CBC) in 1 week and follow-up with your physician for with results. Complete the course of nystatin as prescribed Seek immediate medical attention if your symptoms reoccur or worsen Prescriptions: New nystatin 100,000 unit/mL Suspension 5 ml PO QID 7 Days Qty: 140 RF: 0 Continued lisinopril 20 mg tablet 20 mg PO DAILY RF: 0 tramadol 50 mg tablet 50 mg PO Q6H PRN (Reason: Pain) RF: 0 pantoprazole 40 mg tablet,delayed release (DR/EC) 40 mg PO DAILY RF: 0 Stand-Alone Forms: [facility] Discharge Orders: Discharge Order (Routine); Ordered 12/06/18 Ordered By: Aroldo Osborn Admission Data Admit Date/Time: 12/04/18 21:22 Attending Provider: Aroldo Osborn Admit Provider: Ramon Wen Primary Care Provider: Junito Mercado Other Providers: Ramon Wen Service: Telemetry Medical Other Interventions: Discharge Summary Assessment (RN) Last Done: 12/06/18 14:12 Pending Studies at Discharge: Yes Studies:: Final Blood Cultures DC Date/Time DO NOT enter until pt leaves facility: 12/06/18 14:30
[2018-12-06 14:13] VITALS: PULSE 91
== END 2018-12-06 14:30 | disposition home or self-care (01) | DRG 809 ==
LOC: ED 17:45 → 2W 21:22